=== PATIENT | male | born 1980 | race Caucasian/White ===

== ENCOUNTER → 2022-06-28 10:17 | Outpatient (CLI) | payer OTHER, SELFPAY ==
--- NOTE | ~2022-06-28 | US_ITS ---
EXAMINATION: US scrotum doppler DATE: 06/28/2022 10:52 INDICATION: Right testicular pain. TECHNIQUE: Grayscale and Doppler ultrasound images of the testes were obtained. COMPARISON: None. FINDINGS: The right testis measures 4.1 x 2.4 x 2.7 cm. The left testis measures 4.3 x 2.3 x 3.7 cm. There is normal vascular flow to both testes. The right epididymis is normal with normal vascular amy w. The left epididymis is normal with normal vascular flow. There is no varicocele or hydrocele. IMPRESSION: 1. Normal testes. Reviewed, dictated and finalized at location A. FISHER IMPRESSION: 1. Normal testes.
== END ==
PROVIDERS: PCP Family Medicine; Visit Provider Urology
DX: N50.819 Testicular pain, unspecified (principal)
CPT/HCPCS: 76870; 93976

== ENCOUNTER → 2022-07-26 11:11 | Outpatient (CLI) | payer OTHER, SELFPAY ==
--- NOTE | ~2022-07-26 | CT_ITS ---
EXAMINATION: CT pelvis wo con DATE: 07/26/2022 11:30 INDICATION: Right lower quadrant and inguinal pain. TECHNIQUE: High resolution computed tomography (CT) of the pelvis was performed without intravenous c ontrast. Additional sagittal and coronal reconstructions were performed. Automated exposure control a nd iterative reconstruction technique were employed. The dose-length product was 394.02 mGy-cm. COMPARISON: None FINDINGS: Visualized portion of the bowels including the appendix are normal. Visualized lower poles of both ki dneys appear normal. Bladder is normal. Likely vasectomy clips bilaterally at the base of the scrotum . No free intraperitoneal gas or fluid. No pathologically enlarged pelvic or inguinal lymphadenopathy . No evident inguinal hernia. Mild bilateral hip and sacroiliac osteoarthritis. IMPRESSION: 1. Unremarkable study with no etiology for reported right lower quadrant/inguinal pain. Reviewed, dictated and finalized at location B. IMPRESSION: 1. Unremarkable study with no etiology for reported right lower quadrant/inguin al pain.
== END ==
PROVIDERS: PCP Family Medicine; Visit Provider Surgery
DX: R10.31 Right lower quadrant pain (principal); Z98.890 Other specified postprocedural states; Z87.19 Personal history of other diseases of the digestive system
CPT/HCPCS: 72192

== ENCOUNTER 2022-10-06 00:39 | Day surgery (SDC) | payer OTHER, SELFPAY ==
[2022-09-28 09:59] VITALS: BMI 23.7
--- NOTE | 2022-09-28 10:08 | PC.NURSE ---
Report to the Outpatient Waiting Room, entrance under the green pavilion located off [facility], at time 1000 on date 10/06/22. Planned Procedure Time: 1200. Time changes happen often and if your time is changed the preop area will call you the afternoon before. - You and your visitor will be asked to self-screen and do not enter if you have any COVID symptoms. - A mask is optional within the hospital at this time. Patients may have clear liquids (water, carbonated beverages, clear teas, apple juice) until 3 hours prior to surgery with a maximum of 20 ounces. - No food from midnight until time of surgery Take the following medications with a SIP of water the morning of surgery: N/A DO NOT STOP ANY OF YOUR OTHER PRESCRIPTION MEDICATIONS PRIOR TO SURGERY EXCEPT THE FOLLOWING Medications to discontinue per physician: N/A Date to take last dose: N/A Please no make-up, nail nicaraguan, hairspray, perfume, deodorant, or body powder the day of surgery. No jewelry (including any body piercings) or valuables the day of surgery, leave them at home. Please take a shower or bath the night before, or the morning of, surgery with an antibacterial soap. Wear comfortable, loose fitting clothing. - Jewelry must be removed prior to entering the operating room. Rings and piercings that are not removed may be cut off. - The hospital will not accept responsibility for valuables. - Please leave all valuables, including medications, at home the day of surgery. If you are going home after surgery, a licensed coach driver must drive you home. - NO public transportation without another adult if you receive anesthesia. - We recommend that an adult stay with you for 24 hours following discharge. - We also recommend that you do not drive, make important decision, drink alcoholic beverages, or take any drugs that were not prescribed by your health care provider for at least 24 hours after your discharge time. Follow any additional instructions given to you from your surgeon. If you or anyone in your household have experienced Covid symptoms in the past week, please notify your surgeon or the nurse liaison at the phone number below for possible testing. Telephone instructions given to PT Daphne MERIDA and asked if any additional questions and then verbalized understanding. Patient advised to call surgeon office or pre surgery nurse liaison [phone] if any additional questions.
[2022-10-06] VITALS (8 sets, daily range): BP systolic 95–124; BP diastolic 58–88; PULSE 61–79; RESP 7–14; TEMP 36.1–36.3; O2SAT 99–100
[2022-10-06] MEDS: LACTATED RINGERS 1,000 ML 30 ML IV CONT ×3 (10:49→15:50)
[2022-10-06] MEDS: ACETAMINOPHEN 500 MG TABLET 1000 MG PO (11:35)
--- NOTE | 2022-10-06 11:38 | P.PNAN_ITS ---
Anes - Initial Pre Proc Eval Procedure: Operation Date: 10/06/22 12:00 Proposed Procedures p Scrotoplasty - Wendie Mccallum MD Date/Time: 10/06/22 11:38 Surgeon: Wendie Mccallum MD Pre Op Diagnosis: Scrotal Fullness,pain Patient Data Age: 41 Gender: M Height: 1.83 m Weight: 82.5 kg Last Vital Signs Temp 36.1 C L 10/06/22 10:18 Pulse 76 10/06/22 10:18 Resp 14 10/06/22 10:18 BP 124/84 10/06/22 10:18 Pulse Ox 99 10/06/22 10:18 O2 Del Method Room Air 10/06/22 10:18 Allergies Allergy/AdvReac Type Severity Reaction Status Date / Time No Known Allergies Allergy Verified 10/06/22 10:26 Home Medications Medication Instructions Recorded Confirmed Type No Home Medications 07/09/22 10/06/22 History Patient hx anesthesia problems: none Family hx anesthesia problems: none Results Review: All pre-operative results and documents have been reviewed as part of the pre- operative evaluation. 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 Informed Consent: The patient's anesthetic plan and its attendant risks and benefits were discussed with the patient/family/POA. Questions were solicited and answers provided to the satisfaction of the patient/family/POA.
--- NOTE | 2022-10-06 12:12 | PM.IMHP ---
H&P: HPI History of Present Illness Date/Time: 10/06/22 12:12 Chief Complaint: excess scrotal skin PMFSH Past Medical History Medical History (Updated 10/06/22 @ 12:13 by Wendie Mccallum MD) Redundant skin Surgical History Surgical History H/O right inguinal hernia repair ~20 years ago with mesh Family History Family History Other Cerebrovascular accident Diabetes mellitus Heart disease Hypertension Social History Social History Smoking status: Never smoker Alcohol intake: current Alcohol use details: RARE Substance use: never Substance use type: does not use Living arrangements: with family Occupation/Education: occupation 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[employer] Spiritual care concerns: No Meds Home Medications and Allergies Home Medications Medication Instructions Recorded Confirmed Type No Home Medications 07/09/22 10/06/22 History Allergies Allergy/AdvReac Type Severity Reaction Status Date / Time No Known Allergies Allergy Verified 10/06/22 10:26 Vital Signs Vital Signs - 24 hr 10/06/22 10:18 Temperature 36.1 C L Pulse Rate 76 Respiratory Rate 14 Blood Pressure 124/84 Pulse Oximetry 99 Oxygen Delivery Room Air Exam Narrative: awake, alert no acute distress normal bilateral testes with redundant scrotal skin Assessment and Plan Assessment and plan (1) Redundant skin: Code(s): L98.7 - Excessive and redundant skin and subcutaneous tissue Status: Acute Plan The risks/benefits/alternatives discussed with the patient. Understands risks of infection, bleeding, injury, dissatisfaction with cosmetic or functional result, pain, anesthesia complication. Plan to proceed with scrotoplasty to remove redundant scrotal skin
--- NOTE | 2022-10-06 12:15 | WPDHPUPDATE1 ---
History and Physical Update Update Date/Time: 10/06/22 12:15 History and Physical has been reviewed, including an updated exam of the patient. There are NO changes in the patient's condition. Risks, benefits, and alternatives have been discussed and questions answered. Patient agrees to proceed with procedure.
[2022-10-06] MEDS: ceFAZolin 2 GM/D5W 50 ML 2 GM/50 ML BAG IVPB (12:25)
[2022-10-06] MEDS: BUPivacaine HCL 0.5% 10 ML AMP INFILTRATE (13:35)
--- NOTE | 2022-10-06 13:56 | W.PM.PROC2 ---
Procedure Note - Detailed Date of Procedure 10/06/22 Pre-op Diagnosis Redundant scrotal skin Post-op Diagnosis Same Procedure Performed Scrotalplasty with excision of redundant scrotal skin Surgeon Wendie Mccallum MD Anesthesia General Description of Procedure Informed consent was obtained. Patient states the operating. He was given IV antibiotics. He was then she shaved, prepped, draped. We then carefully inspected the scrotum and revealed significant inferior excessive scrotal skin. We then placed multiple levels clamps over the skin and marked area of excision. Approximately [id number] area of skin was excised carefully avoiding testicles and tunica vaginalis. We then irrigated copiously hemostasis achieved. We then closed dartos layer with 2-0 Vicryl suture. The skin was then additionally excised for another [id number] area at the superior aspect of incision to improved cosmetic result. Excised tissue was all sent to pathology. We again irrigated and achieved hemostasis. Deep dermal layer was then closed with multiple interrupted 3-0 Vicryl sutures. We then performed an 3-0 Monocryl horizontal mattress closure to the skin and placed additional interrupted 3-0 Monocryl sutures for support. Glue was placed over incision. There appeared to be an excellent cosmetic result. Scrotal supporter was placed. Patient was awakened and taken recovery room in stable condition Pathology Yes Complications No immediate complications Condition Stable Disposition PACU
[2022-10-06] MEDS: oxyCODONE HCL (*CRX) 5 MG TAB IR PO (15:12)
[2022-10-06] MEDS: ONDANSETRON INJ 4 MG/2 ML VIAL IV PUSH (15:23)
== END 2022-10-06 16:19 | disposition home or self-care (01) ==
PROVIDERS: PCP Family Medicine; Visit Provider Urology
PROC: (CPT 55180; principal; 2022-10-06 12:00)
DX: L98.7 Excessive and redundant skin and subcutaneous tissue (principal); N50.89 Other specified disorders of the male genital organs
CPT/HCPCS: 55180; 88305; A9270; C1713; J0690; J1100; J1170; J2250; J2405; J2704; J3010; J7120